=== PATIENT | female | born 1950 | race Caucasian/White ===

== ENCOUNTER → 2016-12-07 | Outpatient (CLI) | payer MEDICARE, BC ==
--- NOTE | 2016-12-08 19:42 | RESP ---
DATE OF SERVICE: 12/07/2016 ATTENDING PHYSICIAN: Evelyn Tolbert MD The patient's FVC was 2.64, which is 92% predicted; FEV1 1.95, which is 90% predicted. The FEV1/FVC ratio was normal. FEF 25-75 was 72% predicted. No bronchodilators were given. Total lung capacity was 112% predicted. Residual volume 149% predicted. Diffusion capacity 127% predicted. IMPRESSION: 1. Small airway dysfunction. No significant obstructive airway disease seen. 2. No bronchodilators given. 3. Lung volume is consistent with air trapping and hyperinflation. 4. Increased diffusion capacity. CARLOS BERNABE MD DR: MARY ANN/reinaldo JOB#: [id number] / [id number] EVELYN Blackwood MD MTDD
== END | disposition home or self-care (01) ==
LOC: PF 09:24
PROVIDERS: ATTEND Family Medicine
DX: J84.10 Pulmonary fibrosis, unspecified (principal)
CPT/HCPCS: 94010; 94729